=== PATIENT | male | born 1960 | race Caucasian/White ===

== ENCOUNTER 2020-05-15 14:40 | Outpatient (REF) | payer OTHER, SELFPAY ==
--- NOTE | 2020-05-15 14:52 | ECG_ITS ---
Test Reason : PREPROC EXAM Blood Pressure : / mmHG Vent. Rate : 071 BPM Atrial Rate : 071 BPM P-R Int : 132 ms QRS Dur : 090 ms QT Int : 378 ms P-R-T Axes : 076 065 056 degrees QTc Int : 410 ms Normal sinus rhythm Normal ECG When compared with ECG of 28-DEC-2015 13:44, No significant change was found Referred By: Ronnie Soares Electronically Signed By:APOLONIA CASTILLO MD
--- NOTE | 2020-05-15 15:04 | XR_ITS ---
EXAMINATION: XR SHOULDER, LEFT CLINICAL INFORMATION: Pain. COMPARISON: None TECHNIQUE: AP external rotation, Grashey, scapular Y, and axillary views of the left shoulder. FINDINGS: The bones and soft tissues are normal. No fracture. Glenohumeral and acromioclavicular alignment is anatomic with normal joint space. No abnormal soft tissue calcifications. XR/XR shoulder LT min 2V IMPRESSION: Unremarkable left shoulder exam.
[2020-05-15 15:18] LABS: MANUAL DIFF FLAG NO
[2020-05-15 15:25] LABS: Basophils Absolute Auto 0.1 X10*3/uL (0.0-0.2); Basophils Percent Auto 0.7 % (0-2); Eosinophils Absolute Auto 0.1 X10*3/uL (0.0-0.4); Eosinophils Percent Auto 1.2 % (0-4); Hematocrit 40.8 % (42-52); Hemoglobin 13.5 g/dl (14.0-18.0); Imm Gran Abs Auto 0.03 X10*3/uL (0.00-0.03); Imm Gran Pct Auto 0.4 % (0.0-0.4); Lymphocytes Absolute Auto 2.9 X10*3/uL (1.2-4.9); Lymphocytes Percent Auto 35.1 % (20-40); Mean Corpuscular HGB Conc 33.1 g/dl (31.0-36.0); Mean Corpuscular Hemoglobin 28.3 pg (27.0-33.0); Mean Corpuscular Volume 85.5 fL (80-98); Mean Platelet Volume 10.1 fL (9.4-12.4); Monocytes Absolute Auto 0.7 X10*3/uL (0.1-1.2); Monocytes Percent Auto 8.2 % (2-11); Neutrophils Absolute Auto 4.5 X10*3/uL (2.0-8.3); Neutrophils Percent Auto 54.4 % (45-73); Platelet Count 283 X10*3/uL (160-400); Red Blood Count 4.77 X10*6/uL (4.60-5.80); Red Cell Distribution Width 13.1 % (11.0-16.0); White Blood Count 8.3 X10*3/uL (4.8-10.8)
[2020-05-15 15:42] LABS: Anion Gap 11 (12-20); Blood Urea Nitrogen 10 mg/dL (9-16); Calcium 9.1 mg/dL (8.4-10.2); Carbon Dioxide 27 mmol/L (22-29); Chloride 105 mmol/L (96-108); Estimated Glomerular Filt Rate > 60; Glucose Random 78 mg/dL (60-115); Sodium 139 mmol/L (135-145)
== END 2020-05-15 14:41 | disposition home or self-care (01) ==
LOC: HO.LAB 14:40
PROVIDERS: Visit Provider Internal Medicine
DX: Z01.818 Encounter for other preprocedural examination (principal); R51.9 Headache, unspecified; M25.512 Pain in left shoulder
CPT/HCPCS: 36415; 73030; 80048; 85025; 93005

== ENCOUNTER 2020-09-15 09:51 | Day surgery (SDC) | payer OTHER, SELFPAY ==
[2020-09-09 15:08] VITALS: BMI 27.3
[2020-09-15 09:58] VITALS: BP 114/69; PULSE 100; RESP 18; TEMP 36.3; O2SAT 98
[2020-09-15] MEDS: Sodium Phosphate,Mono-Dibasic 133 ML ENEMA PR (10:16)
--- NOTE | 2020-09-15 10:18 | PC.NURSE ---
fleets given for results of liquid adams to light brown pt tolerated well
--- NOTE | 2020-09-15 10:19 | P.CONAN_ITS ---
[facility] Active Problems Active Problems: All Active Problems (Updated 09/09/20 @ 15:02 by Esther perry) Shoulder pain (Acute) Screening due (Acute) Pre-op exam (Acute) Past Medical History Medical History Environmental allergies Low back pain Seasonal allergies Vapes nicotine containing substance Family History Family History Father No problems noted. Mother No problems noted. Surgical History Surgical History History of cataract extraction Hx of colonoscopy Hx of right inguinal hernia repair Hx of tonsillectomy Social History Social History Alcohol intake: never Smoking Status: Current every day smoker Tobacco Type: E-Cigarette Use of substances other than those prescribed or required for medical reasons: No Advance Directives: No Advance Directives Information Provided: No Advance Directives on File: No Meds Allergies Allergy/AdvReac Type Severity Reaction Status Date / Time SEASONAL ALLERGIES Allergy Unknown RUNNY NOSE Uncoded 03/27/20 16:51 Active Medications: Current Medications Generic Name Dose Route Start Last Admin Trade Name Freq PRN Reason Stop Dose Admin Sodium Biphosphate/Sodium Phosphate 133 ml 09/15/20 08:56 09/15/20 10:16 Sodium Phosphate,[place]-Dibasic 133 Ml Enema IN 133 ml ONCE PRN Administration Poor Colonoscopy Prep Results Home Medications Medication Instructions Recorded Confirmed Last Taken Type Nasal [place] 12 hour Sinus 09/09/20 09/09/20 Unknown History Exam Exam Date and Time: September 15, 2020 1019 Height,Weight and Vital Signs: Height 5 ft 5 in Weight 74.389 kg Last Vital Signs Temp 97.4 F 09/15/20 09:58 Pulse 100 09/15/20 09:58 Resp 18 09/15/20 09:58 BP 114/69 09/15/20 09:58 Pulse Ox 98 09/15/20 09:58 Airway Mallampati Class: II TM Dist: >3cm Denture: Upper
--- NOTE | 2020-09-15 10:24 | PC.NURSE ---
results liquid yellow after fleets
--- NOTE | 2020-09-15 10:28 | HO.ANESPROP2 ---
[facility] Active Problems Active Problems: All Active Problems (Updated 09/09/20 @ 15:02 by Esther Bass) Shoulder pain (Acute) Screening due (Acute) Pre-op exam (Acute) Past Medical History Medical History Environmental allergies Low back pain Seasonal allergies Vapes nicotine containing substance Family History Family History Father No problems noted. Mother No problems noted. Surgical History Surgical History History of cataract extraction Hx of colonoscopy Hx of right inguinal hernia repair Hx of tonsillectomy Social History Social History Alcohol intake: never Smoking Status: Current every day smoker Tobacco Type: E-Cigarette Use of substances other than those prescribed or required for medical reasons: No Advance Directives: No Advance Directives Information Provided: No Advance Directives on File: No Meds Allergies Allergy/AdvReac Type Severity Reaction Status Date / Time SEASONAL ALLERGIES Allergy Unknown RUNNY NOSE Uncoded 03/27/20 16:51 Active Medications: Current Medications Generic Name Dose Route Start Last Admin Trade Name Freq PRN Reason Stop Dose Admin Sodium Biphosphate/Sodium Phosphate 133 ml 09/15/20 08:56 09/15/20 10:16 Sodium Phosphate,[place]-Dibasic 133 Ml Enema [place] 133 ml ONCE PRN Administration Poor Colonoscopy Prep Results Home Medications Medication Instructions Recorded Confirmed Last Taken Type Nasal [place] 12 hour Sinus 09/09/20 09/09/20 Unknown History Exam Exam Date and Time: September 15, 2020 1028 Height,Weight and Vital Signs: Height 5 ft 5 in Weight 74.389 kg Last Vital Signs Temp 97.4 F 09/15/20 09:58 Pulse 100 09/15/20 09:58 Resp 18 09/15/20 09:58 BP 114/69 09/15/20 09:58 Pulse Ox 98 09/15/20 09:58 Airway Mallampati Class: II TM Dist: >3cm Neck ROM: Full
[2020-09-15] MEDS: Lactated Ringers 1,000 ML 100 ML IVCONT (10:30)
[2020-09-15 11:25] VITALS: BP 113/69; PULSE 74; RESP 16; TEMP 36.2; O2SAT 98
--- NOTE | 2020-09-15 11:29 | PM.OP ---
Brief Operative Note Date of Service: 09/15/20 Pre-op diagnosis: Screening Post-op diagnosis: other (Colon polyp) Procedure: Colonoscopy to the cecum and TI with biopsy and removal of polyp Surgeon: Phoenix Johnson Anesthesia: MAC Estimated blood loss (mL): 3.0 Pathology: other (A. Cecal polyp) Condition: stable Disposition: PACU
[2020-09-15 11:40] VITALS: PULSE 78; RESP 16; O2SAT 99
--- NOTE | 2020-09-15 11:52 | OP_ITS ---
SURGEON: Phoenix Johnson MD INDICATIONS: The patient presents for evaluation of colorectal cancer screening. Full consent has been obtained from him for this, including risks of bleeding and perforation. PREOPERATIVE DIAGNOSIS: Colorectal cancer screening. POSTOPERATIVE DIAGNOSIS: PROCEDURE PERFORMED: Colonoscopy to the cecum and terminal ileum with biopsy and removal of polyp. ESTIMATED BLOOD LOSS: COMPLICATIONS: ANESTHESIA: Monitored anesthesia care. ASSISTANTS: SPECIMENS: POSTOPERATIVE DIAGNOSES: Colorectal cancer screening, small colon polyp, sigmoid diverticulosis, and internal hemorrhoids. DESCRIPTION OF PROCEDURE: The patient was placed in the left lateral decubitus position. The digital rectal exam revealed no abnormalities. The Olympus video pediatric colonoscope was entered into the rectum and advanced easily to the cecum. Once in the cecum, I did identify normal-appearing cecal pouch other than a flat approximately 4 or 5 mm polyp, which was biopsied and completely removed with cold biopsy forceps. The remainder of the cecum including the appendiceal orifice appeared normal. The terminal ileum was cannulated and appeared normal. The scope was withdrawn back in the colon. The entire cecum and ileocecal valve appeared normal. The scope was slowly withdrawn assessing all mucosal surfaces carefully. Preparation was excellent. I did not visualize any other polyps, colitis, nor angiodysplasia. There was a mild amount of sigmoid diverticulosis. In the rectum, scope was retroflexed visualizing internal hemorrhoids, but no other pathology. The rectal mucosa appeared normal. The scope was straightened out and withdrawn from the patient. He tolerated the procedure well and was returned to the recovery area in stable condition. IMPRESSION: 1. Small colon polyp, status post biopsy and removal. 2. Diverticulosis. 3. Internal hemorrhoids. PLAN: The results of the biopsy will be checked. If this is a tubular adenoma, I would recommend a followup colonoscopy in 5 years. If it is only hyperplastic, I would recommend a followup colonoscopy in 10 years. He will otherwise see me on a p.r.n. basis. MD GEOVANNY Bautista/DEB / [phone]
[2020-09-15 11:55] VITALS: BP 134/90; PULSE 63; RESP 16; TEMP 36.1; O2SAT 99
== END 2020-09-15 12:45 | disposition home or self-care (01) ==
PROVIDERS: PCP Internal Medicine; Visit Provider Internal Medicine
PROC: 0DJD8ZZ Inspection of Lower Intestinal Tract, Via Natural or Artificial Opening Endoscopic (ICD-10-PCS; CPT 45378; principal; 2020-09-15 10:50)
DX: Z12.11 Encounter for screening for malignant neoplasm of colon (principal); D12.0 Benign neoplasm of cecum; K57.30 Diverticulosis of large intestine without perforation or abscess without bleeding; K64.8 Other hemorrhoids; F17.290 Nicotine dependence, other tobacco product, uncomplicated
CPT/HCPCS: 45380; 88305

== ENCOUNTER 2023-07-27 10:48 | Outpatient (AMB) | payer OTHER, SELFPAY ==
[2023-07-27 10:49] VITALS: BP 102/52; PULSE 59; O2SAT 99; BMI 22.5
--- NOTE | 2023-07-27 10:49 | A.OFFPC_ITS ---
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: Not Required per policy Accompanied by: Self / Same As Patient Allergies SEASONAL ALLERGIES Allergy (Unknown, Uncoded 07/27/23 10:49) RUNNY NOSE Medication List - Last Reconciled 07/27/23 by Ronnie Soares MD No Known Home Meds Tobacco use date assessed: 07/27/23 Dental Screening Dental Screen Date: 07/27/23 Did you have a dental visit in the last 12 months?: No Did you have a dental problem in the last 6 months where you did not have access to dental care?: No Was dental information given to patient?: Patient has dentist HPI [facility] 07/20/23 Heart Attack HPI Details had an mi and stent [place] [facility] [place]; doing well; needs appt to see cardiology [facility] Medical History Environmental allergies Low back pain Seasonal allergies Vapes nicotine containing substance Surgical History Hx of colonoscopy History of cataract extraction Hx of right inguinal hernia repair Hx of tonsillectomy Family History Father No problems noted. Mother No problems noted. Social History Housing: Apartment Alcohol intake: never Patient Tobacco Use Status: Never used Tobacco Tobacco use type: Cigarette e-Cigarette/Vaping Use: Currently Using Second Hand Smoke Exposure: No service: No Current occupational status: employed Cognitive needs: No Hearing needs: No Vision needs: No Questionnaire PHQ-9 Over the last 2 weeks, how often have you been bothered by any of the following problems? 1. Little interest or pleasure in doing things: several days 2. Feeling down, depressed, or hopeless: not at all 3. Trouble falling or staying asleep, or sleeping too much: not at all 4. Feeling tired or having little energy: not at all 5. Poor appetite or overeating: not at all 6. Feeling bad about yourself - or that you are a failure or have let yourself or your family down: not at all 7. Trouble concentrating on things, such as reading the newspaper or watching television: not at all 8. Moving or speaking so slowly that other people could have noticed. Or the opposite - being so fidgety or restless that you have been moving around a lot more than usual: not at all 9. Thoughts that you would be better off or of hurting yourself in some way: not at all Total score: 1 Depression Screening Interpretation: Negative Depression Screening Done: Yes 16241 - PHQ-9 Billing: Yes Source: Developed by Drs. Phoenix Calvo, Anastasiia Villalobos, Gokul Torres and colleagues, with an educational alex from [employer]. Thrive Questionnaire Date Thrive assessed: 07/27/23 I am a: Patient What is your living situation today?: I have a steady place to live Within the past 12 months, did the food you bought not last and you didn't have the money to get more?: Never true Within the past 12 months, did you worry whether your food would run out before you got money to buy more?: Never true Do you have trouble paying for medicines?: No Do you have trouble getting transportation to medical appointments?: No Do you have trouble paying your heating and electricity bill?: No Do you have trouble taking care of your child, family member or friend?: No Do you have trouble with day-to-day activities such as bathing, preparing meals, shopping, managing finances, etc.?: No Are you currently unemployed and looking for a job?: No Are you interested in more education?: No Please select the resources that you would like help with: None AUDIT C Alcohol Use Questionnaire (AUDIT-C) 1. How often do you have a drink containing alcohol?: Never Total Score: 0 Score Reviewed/Action Taken: Yes ERICKA-7 AMB Questionnaire ERICKA-7 Date ERICKA - 7 assessed: 07/27/23 Feeling nervous, anxious, or on edge: 0 = Not at all Not being able to stop or control worryin = Not at all Worrying too much about different things: 0 = Not at all Trouble relaxin = Not at all Being so restless that it is hard to sit still: 0 = Not at all Becoming easily annoyed or irritable: 0 = Not at all Feeling afraid as if something awful might happen: 0 = Not at all Total ERICKA-7 score (0-4 normal; 5-9 mild; 10-14 moderate; 15-21 severe): 0 Source: Developed by Drs. Phoenix Calvo, Anastasiia Villalobos, Gokul Torres and colleagues, with an educational alex from [employer]. Review of Systems Const Denies chills, Denies headache(s) and Denies weight loss ENT Denies headache(s) Card Denies chest pain, Denies syncope, Denies irregular heart rhythm and Denies dyspnea Resp Denies chest congestion, Denies cough and Denies dyspnea GI Denies abdominal pain, Denies change in stool character, Denies nausea and Denies vomiting Musc Denies deformity and Denies joint swelling Neuro Denies syncope and Denies headache(s) Physical exam (Primary Care) Vital Signs: Last Vital Signs Pulse 59 07/27/23 10:49 BP 102/52 L 07/27/23 10:49 Pulse Ox 99 07/27/23 10:49 Oxygen Delivery Method Room Air 07/27/23 10:49 BMI result Body Mass Index 22.5 Tobacco/Smoking Status: Tobacco use Status Tobacco use date assessed 07/27/23 07/27/23 10:53 Patient Tobacco Use Status Never used Tobacco 07/27/23 10:53 Tobacco use type Cigarette 07/27/23 10:53 e-Cigarette/Vaping Use Currently Using 07/27/23 10:53 PHQ-9: PHQ-9 Score PHQ-9: Total score 1 07/27/23 10:57 Depression Screening Interpretation: Negative Thrive Assessment: Date of Thrive Assessment Date Thrive assessed 07/27/23 07/27/23 10:53 Const General: cooperative, comfortable, no acute distress and alert Neck Neck: Yes no lymphadenopathy Thyroid: Thyroid normal Resp Effort & Inspection: normal respiratory effort Auscultation: clear to auscultation bilaterally Percussion: percussion normal Cardio Jugular venous distension: no JVD Palpation: normal PMI Rate: regular rate Rhythm: regular rhythm Heart sounds: S1 normal heart sound present and S2 normal heart sound present GI Inspection: Yes normal to inspection Palpation (GI): No hepatosplenomegaly present Skin General skin exam: no rashes or lesions noted Extrem General: Yes no clubbing, cyanosis or edema Assessment and Plan Assessment & Plan (1) CAD in [place] artery: Code(s): I25.10 - Atherosclerotic heart disease of [place] coronary artery without angina pectoris Plan: referred to cardiology Orders: Referrals Cardiology Referral I25.10 - Atherosclerotic heart disease of [place] coronary artery without angina pectoris Coding Level of Care Code Est Pt Level 3 (88455) Diagnoses CAD in [place] artery I25.10
== END 2023-07-27 11:15 | disposition home or self-care (01) ==
PROVIDERS: PCP Internal Medicine; Visit Provider Internal Medicine
DX: I25.10 Atherosclerotic heart disease of native coronary artery without angina pectoris (principal)
CPT/HCPCS: 99213